=== PATIENT | female | born 1990 | race Caucasian/White ===

== ENCOUNTER 2016-06-13 06:03 | Inpatient (IN) | payer OTHER ==
[~2016-06-13] VITALS: Ht 162.6 cm; Wt 118.4 kg
[~2016-06-13 06:03] MED LIST: PNV1TABL9 PO
[2016-06-13] MEDS ORDERED: Lactated Ringer's 1,000 ML IV ONE (07:26)
[2016-06-13] MEDS ORDERED: Ondansetron 2 mg/mL 2 mL Inj IVPUSH PRN ×2 (07:35)
[2016-06-13] MEDS ORDERED: Carboprost 250 mCg/mL Inj IM PRN ×2 (07:35→15:25)
[2016-06-13] MEDS ORDERED: EPHEDrine Sulfate 50 mg/mL Inj IVPUSH PRN (07:35)
[2016-06-13] MEDS ORDERED: Hemorrhage Kit, Post Partum XX ONE ×2 (07:35→15:25)
[2016-06-13] MEDS ORDERED: Oxytocin 30 Units/500 mL LR 30 UNITS in IV Premix 1 EACH IV PRN (07:35)
[2016-06-13] MEDS ORDERED: Oxytocin 10 Unit/mL Inj IM PRN ×2 (07:35→15:25)
[2016-06-13] MEDS ORDERED: Lactated Ringer's 1,000 ML IV PRN (07:35)
[2016-06-13] MEDS ORDERED: Sodium Chloride LOK Flush 10 mL Syringe IVFLUSH PRN (07:35)
[2016-06-13] MEDS ORDERED: Atropine 1 mg/10 mL (Code) Syringe IVPUSH PRN (07:35)
[2016-06-13] MEDS ORDERED: Lactated Ringer's 500 ML IV ONE (07:35)
[2016-06-13] MEDS ORDERED: Methylergonovine 0.2 mg/mL Inj IM PRN ×2 (07:35→15:25)
[2016-06-13] MEDS ORDERED: fentaNYL 2 mCg/mL-Bupiv 0.125% 100 ML EPIDURAL SCH (07:35)
[2016-06-13] MEDS ORDERED: fentaNYL-PF 50 mCg/mL 2 mL Inj IVPUSH PRN (07:35)
[2016-06-13 07:55] LABS: Mean Corpuscular Hemoglobin 27.1 pg (27.0-35.0); Mean Corpuscular Volume 82.4 fL (81-100)
--- NOTE | 2016-06-13 08:02 | PCM.HPANE ---
Patient Data Surgeon Admitting Provider:Camilo Moreno MD Attending Provider:Camilo Moreno MD Primary Care Physician:Devan Del Cid MD Other Provider:Tereza Riojas Anesthesia Reason for Visit Term Labor TERM LABOR CHECK Ht/WT & BMI Body Mass Index Allergies Coded Allergies: No Known Allergies (Unverified Allergy, Unknown, 06/06/14) Medications Reported Medications Pnv Cmb#21/Iron/Folic Acid ( Complete Caplet)1 Each Tablet1 Each PO 06/06/14 History Smoking Status: Never Smoker Stop/Bang Risk Assessment Category Category 1A: Patient has history of documented sleep apnea, and HAS NOT received any narcotic, sedative or anesthesia administration during this stay. Category 1B: Patient has history of documented sleep apnea, and HAS received any narcotic , sedative or anesthesia administration during this stay Category 2: Patient has SUSPECTED Obstructive Sleep Apnea, and HAS received any narcotic , sedative or anesthesia administration during this stay. Category 3: Patient has SUSPECTED Obstructive Sleep Apnea and HAS NOT received narcotic, sedative or anesthesia administration during this stay. Category 4: Outpatient in Procedural Areas with known sleep apnea or who screen positive for High Risk via the STOP/BANG questionnaire. Exam Exam General Appearance: Alert, Oriented X3, Cooperative, Mild Distress HEENT/AIRWAY: MP 2 Lungs: Clear to Auscultation Heart: Exam Unremarkable Plan Impression Patient chart reviewed, patient interviewed and anesthestic plan with risks, benefits, and alternatives discussed, and informed consent obtained. ASA Physical Status: ASA3 Severe Disease (BMI greater than 40) Anesthetic Plan: Epidural Bene/Risks/Altern/Consents: Yes HP Complete Prior to Induction: Yes Logan Chinchilla MD Jun 13, 2016 07:35
[2016-06-13] MEDS: Sodium Chloride LOK Flush 10 mL Syringe IVFLUSH SCH ×2 (08:30→16:30)
[2016-06-13] MEDS: Lactated Ringer's 1,000 ML IV SCH ×5 (08:47→23:35)
--- NOTE | 2016-06-13 09:07 | PCM.HPOB ---
Subjective Date of Service: Jun 13, 2016 Referring Provider: Admitting Physician: Camilo Moreno MD Primary Care Physician: Devan Del Cid MD Attending Physician: Camilo Moreno MD Chief Complaint Early Labor History of Present History of Present Illness 25 yo in early labor presents to [facility]. OB History: (2), Para (1), Term (1), Pre-term (0), ( 0), Living (1) Past Medical History Obstetrical History: May 2014: 9 pound male delivered via section due to prolonged pushing. Medical History: 1. Migraine headaches 2. Thyroid dysfunction: Low TSH (<0.006) As of 05/18/2016 FreeT4 0.85 Surgical History: section May 2014 Hx Tobacco Use: No Smoking Status: Never Smoker Hx Alcohol Use: No Past Family History Family History Brother with informed coarctation of aorta Father with hypertension and diabetes mellitus Living Arrangement: with Family Review of Systems Constitutional: Y: Chills, Fever Eyes: Denies: Blurred Vision Cardiovascular: Denies: Chest Pain Respiratory: Denies: Cough Gastrointestinal: Reports: Abdominal Pain, Denies: Epigastric pain Medications Home medications vitamin Allergy Coded Allergies: No Known Allergies (Unverified Allergy, Unknown, 06/06/14) Exam Vital Signs stable, normal Exam Moderate variability, reactive strip, Category 1 tracing Constitutional: Well-developed, Well-nourished HEENT: Atraumatic Lungs: Clear to Auscultation, Normal Air Movement Heart: Regular Rate/Rhythm, No Murmurs/Rubs/Gallops Abdomen: Gravid Extremities: Warm, Edema (trace) Neurological/Psychiatric: Alert, Oriented X3, Cooperative Labs/Diagnostics Labs WBC 11.4 Hemoglobin 11.5 Hematocrit 35.0 Platelets 379 Ultra Sound Confirmed cephalic position via ultrasound in office on 06/02/2016 Maternal Blood Type: A (positive) Hx Rho(D) Immune Globulin: No Antibody Screen: negatives Group B Strep Results: Negative Previous with GBS: No Rubella: Non-Immune OB Intrapartum Assessment/Plan Assessment with prior section presents to the [facility] in labor. She desires a trial of labor. Problems: (1) Active labor at term Plan: Allow patient a trial of labor after prior section. Monitor heart rate Status: Resolved ICD Code: [id number] (2) Rubella non-immune status, antepartum Plan: MMR vaccine Status: Acute ICD Code: O99.89 (3) Qualifiers: Weeks of gestation: 40 weeks Qualified Code: Z3A.40 - 40 weeks gestation of Onset Date: 06/06/2014 Status: Resolved ICD Code: Z33.1 (4) History of section Status: Acute ICD Code: Z98.89 Pain Management: epidural anesthesia Pain Evaluation: Adequate Pain Control Intrapartum plan Continue to allow patient to labor, monitor for signs of distress. Post plan: Continue routine post care TARIK SHAY DO Jun 13, 2016 08:34
[2016-06-13] MEDS: Oxytocin 30 Units/500 mL LR 30 UNITS in IV Premix 1 EACH IV PRN ×2 (15:00→21:02)
[2016-06-13] MEDS ORDERED: Benzocaine (Dermoplast) 20% 60 Gm Spray TOPICAL PRN (15:25)
[2016-06-13] MEDS ORDERED: LANOlin HPA 7 Gm Ointment TOPICAL PRN (15:25)
[2016-06-13] MEDS ORDERED: Measles-Mumps-Rubella Vaccine 0.5 mL Inj SUBQ ONE (15:25)
[2016-06-13] MEDS ORDERED: Witch Hazel-Glycerin Pads TOPICAL PRN (15:25)
[2016-06-13] MEDS ORDERED: Bupivacaine-MPF 0.25% 30 mL Inj ONE (19:19)
--- NOTE | 2016-06-13 22:43 | OP ---
[address] [address] OPERATIVE REPORT PATIENT: PEDRO HANSON : 1990 MR#: [id number] ADMIT: 06/13/2016 JOB ID: [id number] DATE OF SURGERY: 06/13/2016 SURGEON: PREOPERATIVE DIAGNOSIS(ES): A 25-year-old, 2, para 1, at 39 weeks and 1 day, in active labor. Trial of labor after prior . POSTOPERATIVE DIAGNOSIS(ES): A 25-year-old, 2, para 2, status post vaginal after . DELIVERY SUMMARY: The patient is a 25-year-old 2, para 2, who came to Labor and Delivery in the morning of June 13, 2016, at 39 weeks and 1 day with estimated due date of June 19, 2016, complaining of contractions. Patient had spontaneous rupture of membranes in the morning at 9:33 a.m. The amniotic fluid was clear. She was examined and was found to be 5 cm dilated. She was admitted for delivery. The patient was alana every 3-4 minutes. heart rate tracing was reactive, category 1, baseline 135 beats per minute. Vitals were stable. The patient received an epidural. She was re-examined at nine o'clock and was found to be 7 cm dilated, 80% effaced, station -2. She progressed to full dilation at 11:23 a.m., was laboring down, was bearing down. Two hours later, at 13:25 p.m., patient started pushing. She underwent spontaneous vaginal delivery at 14:51. Delivered a female with weight 4865 g, scores 8 at one minute and 9 at five minutes. The placenta was delivered four minutes later and was found to be intact with three-vessel cord. Estimated blood loss was 350 mL. The patient had a second-degree midline perineal laceration that was repaired with 2-0 Vicryl.
[2016-06-14] MEDS: Sodium Chloride LOK Flush 10 mL Syringe IVFLUSH SCH (00:30)
[2016-06-14] MEDS: oxyCODONE-Acetamin 5-325 mg Tablet PO PRN ×3 (03:34→18:56)
[2016-06-14 06:50] LABS: Mean Corpuscular Hemoglobin 26.6 pg (27.0-35.0); Mean Corpuscular Volume 84.6 fL (81-100)
--- NOTE | 2016-06-14 08:20 | PCM.PNOBPP ---
Subjective Date of Service Jun 14, 2016 Post : Vaginal Delivery after [place] Subjective 25 yo [id number] history of cesarian section delivered vaginally. After delivery she was unable to void her bladder. A straight catheter returned 1200cc pale yellow urine. She had three voiding trials with minimal return. A Haile catheter was placed. She has had adequate urine output. She is feeling well this morning with limited ambulation due to Haile catheter. She is undecided about control plans. She has an appointment to discuss this with her primary care provider in July. Lochia: Normal Pain Management: PO pain meds Gastrointestinal: Good Appetite, No N/V Group B Strep Results: Negative Rubella: Non-Immune Blood Type: A (positive) Labs Laboratory Tests 06/14/16 06:35: White Blood Count 11.2, Red Blood Count 3.76, Hemoglobin 10.0, Hematocrit 31.8, Mean Corpuscular Volume 84.6, Mean Corpuscular Hemoglobin 26.6, Mean Corpuscular Hemoglobin Concent 31.4, Red Cell Distribution Width 13.7, Platelet Count 305 Exam Vital Signs Vital Signs: VS reviewed, stable Exam Abdomen: Fundus firm, Abdomen soft : Haile catheter Extremities: Normal pulses, Edema 1+ Lungs: Clear to Auscultation, Normal Air Movement Heart: Regular Rate/Rhythm, No Murmurs/Rubs/Gallops General: Alert, Oriented X3 OB Post Assessment/Plan Assessment 25 yo [id number] history of cesarian section delivered vaginally.Patient with urinary bladder voiding trouble . Otherwise meeting goals. Problems: (1) , delivered, current hospitalization Plan: normal post care Status: Acute ICD Code: O34.21 (2) Active labor at term Status: Resolved ICD Code: [id number] (3) Rubella non-immune status, antepartum Plan: MMR vaccine given Status: Acute ICD Code: O99.89 (4) Qualifiers: Weeks of gestation: 40 weeks Qualified Code: Z3A.40 - 40 weeks gestation of Onset Date: 06/06/2014 Status: Resolved ICD Code: Z33.1 (5) History of section Status: Acute ICD Code: Z98.89 Pain Evaluation: Adequate Pain Control Post plan: Continue routine post care Plan: Discontinue Haile catheter, patient to continue voiding trial. Continue routine care Attending Statement The patient was seen and examined together with Dr. García on 06/14/2016 and I agree with the history, exam and plan as outlined in the note above. / MD LAURITA Grande ERIKA R DO Jun 14, 2016 07:48 Devan Del Cid MD Jul 20, 2016 16:30
--- NOTE | 2016-06-14 18:02 | PCM.DIOB ---
Obstetrical Disch Instruction Date of Service: Jun 14, 2016 Dates of Hospitalization Date of Hospital Admission Jun 13, 2016 at 07:23 Providers Admitting Physician: Camilo Moreno MD Primary Care Physician: Devan Del Cid MD Attending Physician: Camilo Moreno MD Discharge Diagnosis Discharge Diagnosis vaginal delivery after Post Operative diagnosis vaginal delivery after Problems: (1) , delivered, current hospitalization Plan: normal post care Status: Acute ICD Code: O34.21 (2) Active labor at term Status: Resolved ICD Code: [id number] (3) Rubella non-immune status, antepartum Plan: MMR vaccine given Status: Acute ICD Code: O99.89 (4) Qualifiers: Weeks of gestation: 40 weeks Qualified Code: Z3A.40 - 40 weeks gestation of Onset Date: 06/06/2014 Status: Resolved ICD Code: Z33.1 (5) History of section Status: Acute ICD Code: Z98.89 Activity Discharge Activity-General: Pelvic Rest for 6 weeks, Try not to overdue, Balance rest and activity Dressing and Incisional Care Hygiene: May shower Additional Instructions Discharge Instructions Please take the iron and vitamin c together for your anemia. Do not take more pain medication (Percocet) than is necessary -- less is better. Percocet pills have Tylenol (acetaminophen) in them at 325mg per pill. Do not take Tylenol in addition to your pain medication but should take one or the other. Both iron and Percocet can give you constipation so you have also been given a prescription for docusate to keep you regular. Be sure to follow up in 6 weeks at [facility]. Pelvic rest for 6 weeks (nothing per vagina including intercourse, tampons) If you have a fever greater than 100.4, please call [facility]. There is always someone information security architect to talk to. If you have an increase in bleeding, call [facility]. If you have a lot of bleeding suddenly, especially if you have symptoms of dizziness & weakness with it, get emergency help. When you see [facility] in two weeks, you will be informed of the results of all the labs. If you start experiencing extreme depression, especially if you feel that you are a danger to yourself or your family, seek emergency help. You have been through a lot -- BE SURE TO TAKE CARE OF YOURSELF. Follow Up Plan Follow-up Provider (F9): Camilo Moreno MD Follow-up appointment: Weeks (6) Call your provider for: Fever or Chills, Shortness of breath, Heavy bleeding, Excessive constipation TARIK SHAY DO Jun 14, 2016 18:02
[2016-06-14] MEDS ORDERED: FERR-83 PO (18:10)
[2016-06-14] MEDS ORDERED: DOCU-41 PO (18:10)
[2016-06-14] MEDS ORDERED: OXYC1TAB24 PO (18:10)
[2016-06-14] MEDS ORDERED: IBUP800T28 PO (18:10)
[2016-06-14] MEDS ORDERED: ASCO-294 PO (18:10)
[2016-06-14 18:30] VITALS: BP 118/64; PULSE 90; RESP 16
--- NOTE | 2016-06-14 19:07 | PCM.DC.OB ---
Obstetrical Discharge Summary Date of Service Jun 14, 2016 Date of hospital admission Jun 13, 2016 at 07:23 Date of Discharge: Jun 14, 2016 Providers Admitting Physician: Camilo Moreno MD Primary Care Physician: Devan Del Cid MD Attending Physician: Camilo Moreno MD Diagnosis at Time of Discharge Vaginal after Problems: (1) , delivered, current hospitalization Plan: normal post care Status: Acute ICD Code: O34.21 (2) Active labor at term Status: Resolved ICD Code: [id number] (3) Rubella non-immune status, antepartum Plan: MMR vaccine given Status: Acute ICD Code: O99.89 (4) Qualifiers: Weeks of gestation: 40 weeks Qualified Code: Z3A.40 - 40 weeks gestation of Onset Date: 06/06/2014 Status: Resolved ICD Code: Z33.1 (5) History of section Status: Acute ICD Code: Z98.89 Invasive procedures Vaginal after Date of Procedure: Jun 13, 2016 Brief History and Physical: 25 yo with prior section in 2014 presented to [facility] early in the morning of Jun 13 in early labor. She was found to be dilated to 4 cm and was admitted. She is rubella non immune and GBS negative. Physical Examination on day of discharge: Vital signs stable and normal, well appearing, well nourished, Heart regular rate and rhythm no murmurs, lungs clear to auscultation with good respiratory effort. +1 edema in bilateral lower extremities. Normal mood and affect. Hospital Course: with prior section presents to the [facility] in labor. She desired a trial of labor. Epidural anaesthesia was given. Labor progressed normally. Patient was found to be complete and term infant was delivered. Patient had some difficulty urinating post , eventually Haile was placed, she had normal urine output. It was removed with no residual difficulty urinating. Patient is discharged home in stable condition. Ascorbate Calcium (Vitamin C) 500 Mg Tablet 500 MG PO DAILY Prescribed by: TARIK SHAY DO Docusate Sodium (Colace) 100 Mg Capsule 100 MG PO DAILY PRN PRN For Constipation Prescribed by: TARIK SHAY DO Ferrous Sulfate (Ferrous Sulfate) 325 Mg Tablet 325 MG PO DAILY take with vitamin C Prescribed by: TARIK SHAY DO Ibuprofen (Ibuprofen) 800 Mg Tablet 800 MG PO Q6H PRN PRN For Pain Prescribed by: TARIK SHAY DO Pnv Cmb#21/Iron/Folic Acid ( Complete Caplet) 1 Each Tablet 1 EACH PO ( Reported) oxyCODONE-Acetaminophen 5-325 mg (oxyCODONE-Acetaminophen 5-325 mg) 1 Each Tablet 1-2 TAB PO Q4H PRN PRN For Pain Prescribed by: TARIK SHAY DO Discharge Medications: Iron Colace Percocet Ibuprofen Vitamin C Disposition Discharge home Follow-up plan 6 weeks in [facility] Discharge Diet: No restrictions Discharge Activity-General: Pelvic Rest for 6 weeks Patient instructions Please take the iron and vitamin c together for your anemia. Do not take more pain medication (Percocet) than is necessary -- less is better. Percocet pills have Tylenol (acetaminophen) in them at 325mg per pill. Do not take Tylenol in addition to your pain medication but should take one or the other. Both iron and Percocet can give you constipation so you have also been given a prescription for docusate to keep you regular. Be sure to follow up in 6 weeks at [facility]. Pelvic rest for 6 weeks (nothing per vagina including intercourse, tampons) If you have a fever greater than 100.4, please call [facility]. There is always someone music professionals to talk to. If you have an increase in bleeding, call [facility]. If you have a lot of bleeding suddenly, especially if you have symptoms of dizziness & weakness with it, get emergency help. When you see [facility] in two weeks, you will be informed of the results of all the labs. If you start experiencing extreme depression, especially if you feel that you are a danger to yourself or your family, seek emergency help. You have been through a lot -- BE SURE TO TAKE CARE OF YOURSELF. Attending Statement: The patient was seen and examined together with Dr. Shay on 06/14/2016 and I agree with the history, exam and plan as outlined in the note above. / MD LAURITA Grande ERIKA R DO Jun 14, 2016 19:07 Devan Del Cid MD Jul 20, 2016 16:35
== END 2016-06-14 19:20 | disposition home or self-care (01) | DRG 775 ==
LOC: FBCO 06:03 → FBC 07:23
PROVIDERS: ADMIT Legal Medicine; ATTEND Legal Medicine
PROC: 10E0XZZ Delivery of Products of Conception, External Approach (ICD-10-PCS; principal; 2016-06-13)
PROC: 0KQM0ZZ Repair Perineum Muscle, Open Approach (ICD-10-PCS; 2016-06-13)
PROC: 3E0234Z Introduction of Serum, Toxoid and Vaccine into Muscle, Percutaneous Approach (ICD-10-PCS; 2016-06-13)
DX: O70.1 Second degree perineal laceration during delivery (principal); Z37.0 Single live birth; O34.219 Maternal care for unspecified type scar from previous cesarean delivery; Z3A.40 40 weeks gestation of pregnancy; Z23 Encounter for immunization